=== PATIENT | female | born 1965 | race Caucasian/White ===

== ENCOUNTER 2017-03-17 12:16 | Observation (INO) | payer OTHER ==
[~2017-03-17] VITALS: Ht 172.7 cm; Wt 108.6 kg
[~2017-03-17 12:16] MED LIST: Diltiazem Hcl PO; PANT40TA3 PO
[2017-03-17] MEDS ORDERED: IV NORMAL SALINE 1,000ML 1,000 ML IV SCH (12:26)
[2017-03-17] MEDS ORDERED: 0.9 % SODIUM CHLORIDE 10 ML DISP.SYRIN. IV PRN (12:30)
--- NOTE | 2017-03-17 12:32 | PHYS DOC ---
Past History Past Medical History: Other Additional Past Medical Histor: lupus Past Surgical History: Appendectomy, Cholecystectomy Smoking: Non-smoker Alcohol Use: None Drug Use: None Adult General Chief Complaint Chief Complaint: CHEST PAIN HPI HPI Is a pleasant 51-year-old female with a history of lupus who presents with chest pain that began while exerting herself mowing the lawn today. She's never had chest pain like this before. Began while mowing her second-best lawn today sitting in the center of her chest with radiation to the left shoulder and left side of her neck. She describes a sharp pressure that is unrelenting and not relieved with rest or aspirin at this time. Patient's had some nausea without vomiting no cough but she is mildly short of breath with symptoms. She did not become diaphoretic or have a fever or chills change in vision, change in sensation, or abdominal pain. Patient denies any direct trauma. Patient does have a family history of significant heart disease on her father's side. Patient is a lupus patient has been on prednisone until approximately 2 months ago. Review of Systems Review of Systems Constitutional: Denies fever or chills [] Eyes: Denies change in visual acuity, redness, or eye pain [] HENT: Denies nasal congestion or sore throat [] Respiratory: has sob Cardiovascular: No additional information not addressed in HPI [] GI: Denies abdominal pain, has nausea without vomiting or diarrhea : Denies dysuria or hematuria [] Musculoskeletal: Denies back pain or joint pain [] Integument: Denies rash or skin lesions [] Neurologic: Denies headache, focal weakness or sensory changes [] Endocrine: Denies polyuria or polydipsia [] Family History Family History postive for CAD on father side of family Allergies Allergies Allergies Coded Allergies Type Severity Reaction Last Updated Verified codeine Allergy Severe Swelling 05/12/14 Yes morphine Allergy Intermediate Nausea and Vomiting 05/12/14 Yes prochlorperazine Allergy Intermediate 05/12/14 Yes Physical Exam Physical Exam Noted tachycardia at 102 likely secondary to anxiety normotensive otherwise normal vital signs Constitutional: Well developed, well nourished, no acute distress, non-toxic appearance. [] HENT: Normocephalic, atraumatic, bilateral external ears normal, oropharynx moist, no oral exudates, nose normal. [] Eyes: PERRLA, EOMI, conjunctiva normal, no discharge. [] Neck: Normal range of motion, no tenderness, supple, no stridor. [] Cardiovascular:Heart rate regular rhythm, no murmur heart rate on my exam is 94 monitor Lungs & Thorax: Bilateral breath sounds clear to auscultation [] Abdomen: Bowel sounds normal, soft, no tenderness, no masses, no pulsatile masses. [] Skin: Warm, dry, no erythema, no rash. [] Back: No tenderness, no CVA tenderness. [] Extremities: No tenderness, no cyanosis, no clubbing, ROM intact, no edema. [] Neurologic: Alert and oriented X 3, normal motor function, normal sensory function, no focal deficits noted. [] Psychologic: She is anxious Current Patient Data Vital Signs Vital Sign - Last 24 Hours 03/17/17 03/17/17 03/17/17 03/17/17 12:25 12:28 12:40 12:43 Temp 98.0 Pulse 102 84 Resp 16 18 16 B/P (MAP) 180/86 (117) 156/92 (113) Pulse Ox 97 95 O2 Delivery Room Air Room Air 03/17/17 13:14 Pulse 88 Resp 16 B/P (MAP) 155/89 (111) Pulse Ox 95 Lab Results Laboratory Tests Test 03/17/17 12:33 03/17/17 12:52 White Blood Count 7.4 x10^3/uL (4.0-11.0) Red Blood Count 4.76 x10^6/uL (3.50-5.40) Hemoglobin 14.0 g/dL (12.0-15.5) Hematocrit 40.8 % (36.0-47.0) Mean Corpuscular Volume 86 fL (79-100) Mean Corpuscular Hemoglobin 30 pg (25-35) Mean Corpuscular Hemoglobin Concent 34 g/dL (31-37) Red Cell Distribution Width 13.1 % (11.5-14.5) Platelet Count 227 x10^3/uL (140-400) Neutrophils (%) (Auto) 56 % (31-73) Lymphocytes (%) (Auto) 34 % (24-48) Monocytes (%) (Auto) 6 % (0-9) Eosinophils (%) (Auto) 3 % (0-3) Basophils (%) (Auto) 1 % (0-3) Neutrophils # (Auto) 4.2 x10^3uL (1.8-7.7) Lymphocytes # (Auto) 2.5 x10^3/uL (1.0-4.8) Monocytes # (Auto) 0.5 x10^3/uL (0.0-1.1) Eosinophils # (Auto) 0.2 x10^3/uL (0.0-0.7) Basophils # (Auto) 0.1 x10^3/uL (0.0-0.2) D-Dimer (Lesly) 0.32 mg/L (0.00-0.50) Sodium Level 141 mmol/L (136-145) Potassium Level 3.7 mmol/L (3.5-5.1) Chloride Level 104 mmol/L (98-107) Carbon Dioxide Level 27 mmol/L (21-32) Anion Gap 10 (6-14) Blood Urea Nitrogen 12 mg/dL (7-20) Creatinine 0.8 mg/dL (0.6-1.0) Estimated GFR (Cockcroft-Gault) 75.6 BUN/Creatinine Ratio 15 (6-20) Glucose Level 167 mg/dL (70-99) H Calcium Level 9.0 mg/dL (8.5-10.1) Magnesium Level 2.1 mg/dL (1.8-2.4) Total Bilirubin 0.4 mg/dL (0.2-1.0) Aspartate Amino Transferase (AST) 29 U/L (15-37) Alanine Aminotransferase (ALT) 58 U/L (14-59) Alkaline Phosphatase 129 U/L (46-116) H Creatine Kinase 345 U/L (26-192) H Creatine Kinase MB (Mass) 1.6 ng/mL (0.0-3.6) Creatine Kinase MB Relative Index 0.5 % (0-4) Troponin I Quantitative < 0.017 ng/mL (0-0.055) OW-Diy-Z-Type Natriuretic Peptide 40 pg/mL (0-124) Total Protein 7.5 g/dL (6.4-8.2) Albumin 3.5 g/dL (3.4-5.0) Albumin/Globulin Ratio 0.9 (1.0-1.7) L Lipase 159 U/L (73-393) Urine Collection Type Unknown Urine Color Yellow Urine Clarity Hazy Urine pH 7.0 Urine Specific [place] 1.020 Urine Protein Neg (NEG-TRACE) Urine Glucose (UA) Neg mg/dL (NEG) Urine Ketones (Stick) Neg mg/dL (NEG) Urine Blood Trace (NEG) Urine Nitrite Neg (NEG) Urine Bilirubin Neg (NEG) Urine Urobilinogen Dipstick 0.2 mg/dL (0.2 mg/dL) Urine Leukocyte Esterase Trace (NEG) Urine RBC 3-5 /HPF (0-2) Urine WBC 5-10 /HPF (0-4) Urine Squamous Epithelial Cells Few /LPF Urine Bacteria Mod /HPF (0-FEW) Urine Mucus Slight /LPF EKG EKG EKG timed 1229 03/17/[address] Parada heart rate of 99 demonstrates normal sinus rhythm occasional PACs noticed a similar T-wave changes consistent with acute coronary ischemia. Nonspecific T-wave merged in V1 which may be a normal variant. [] Radiology/Procedures Radiology/Procedures Signed PATIENT: AURORA LONGORIA ACCOUNT: [id number] : 1965 LOCATION: ER AGE: 51 SEX: F EXAM STATUS: REG ER ORD. PHYSICIAN: MADELAINE PARADA MD REASON: chest pain PROCEDURE: CHEST PA & LATERAL EXAM: CHEST 2 VIEWS History: Chest pain COMPARISON: 06/12/2015 TECHNIQUE: PA and lateral chest radiographs FINDINGS: The cardiomediastinal silhouette is within normal limits. The lungs are clear bilaterally. The costophrenic sulci are clear and well demarcated bilaterally. IMPRESSION: No radiographic evidence of an acute cardiopulmonary abnormality. DICTATED AND SIGNED BY: JOESPH VERA MD DATE: 03/17/17 1300 CC: MADELAINE PARADA MD; PARKER CAMPOS MD ~ [] Course & Med Decision Making Course & Med Decision Making Pertinent Labs and Imaging studies reviewed. (See chart for details) she presents with chest pain that she has not expressed before and has a lupus patient she is an increased risk for prematurely developing CAD. She has a significant family history in her father's side given the duration of her symptoms only one hour she'll need to be admitted to the hospital for rule out AL protocol. EKG does not demonstrated acute coronary event at this point. I cannot tell her that she not having heart damage at this time. She has been given multiple pain medications to reduce her pain. At this point her risk factors are family history and lupus. She'll be admitted to the hospital under Dr. FRANCE BLANC her PCP and cardiology evaluation. Differential diagnosis includes dissection, pericarditis, pericardial effusion, endocarditis, myocarditis, pneumonia, asthma, COPD, esophagitis, esophageal reflux disease, esophageal spasm, peptic ulcer disease, pleural effusion, acute coronary ischemia, muscular chest wall pain, anxiety, and mediastinitis. Impression chest pain of unclear etiology, tachycardia now resolved, disposition: Admission to the hospital with PCP and cardiology evaluation. [] Dragon Disclaimer Dragon Disclaimer This chart was dictated in whole or in part using Voice Recognition software in a busy, high-work load, and often noisy Emergency Department environment. It may contain unintended and wholly unrecognized errors or omissions. Departure Departure: Referrals: PARKER CAMPOS MD (PCP) MADELAINE PARADA MD March 17, 2017 12:32
[2017-03-17] MEDS: fentaNYL PF 100 MCG/2 ML VIAL IV PRN ×2 (12:40→13:36)
[2017-03-17] MEDS ORDERED: ONDANSETRON PF 4 MG/2 ML VIAL. IV ONE (12:45)
[2017-03-17 12:48] LABS: BASO # 0.1 x10^3/uL (0.0-0.2); BASO % 1 % (0-3); EOS # 0.2 x10^3/uL (0.0-0.7); EOS % 3 % (0-3); HEMATOCRIT 40.8 % (36.0-47.0); LYMPH # 2.5 x10^3/uL (1.0-4.8); LYMPH % 34 % (24-48); MEAN CORPUSCULAR HEMOGLOBIN 30 pg (25-35); MEAN CORPUSCULAR HGB CONC 34 g/dL (31-37); MEAN CORPUSCULAR VOLUME 86 fL (79-100); MONO # 0.5 x10^3/uL (0.0-1.1); MONO % 6 % (0-9); NEUT # 4.2 x10^3uL (1.8-7.7); NEUT % 56 % (31-73); PLATELET COUNT 227 x10^3/uL (140-400); RED BLOOD COUNT 4.76 x10^6/uL (3.50-5.40); RED CELL DISTRIBUTION WIDTH 13.1 % (11.5-14.5); WHITE BLOOD COUNT 7.4 x10^3/uL (4.0-11.0)
--- NOTE | 2017-03-17 13:03 | RAD ---
EXAM: CHEST 2 VIEWS History: Chest pain COMPARISON: 06/12/2015 TECHNIQUE: PA and lateral chest radiographs FINDINGS: The cardiomediastinal silhouette is within normal limits. The lungs are clear bilaterally. The costophrenic sulci are clear and well demarcated bilaterally. IMPRESSION: No radiographic evidence of an acute cardiopulmonary abnormality.
[2017-03-17 13:12] LABS: ALBUMIN 3.5 g/dL (3.4-5.0); ALBUMIN/GLOBULIN RATIO 0.9 (1.0-1.7); CREATININE 0.8 mg/dL (0.6-1.0); GFR 75.6; MAGNESIUM 2.1 mg/dL (1.8-2.4); POTASSIUM 3.7 mmol/L (3.5-5.1); TOTAL BILIRUBIN 0.4 mg/dL (0.2-1.0); TOTAL PROTEIN 7.5 g/dL (6.4-8.2)
[2017-03-17 13:17] LABS: BILIRUBIN,URINE NEG (NEG); CLARITY,URINE HAZY; COLOR,URINE YELLOW; GLUCOSE,URINE NEG (NEG)
[2017-03-17 13:18] LABS: BACTERIA,URINE MOD /HPF (0-FEW); NITRITE,URINE NEG (NEG); SQUAMOUS EPITHELIAL CELL,UR FEW /LPF; UROBILINOGEN,URINE 0.2 mg/dL (0.2 mg/dL)
[2017-03-17] MEDS ORDERED: ACETAMINOPHEN 325 MG TABLET PO PRN (13:45)
[2017-03-17] MEDS ORDERED: NITROGLYCERIN SUBLINGUAL 0.4 MG BOTTLE OF 25. SL PRN (13:45)
[2017-03-17] MEDS ORDERED: fentaNYL PF 100 MCG/2 ML VIAL IV PRN (13:45)
[2017-03-17] MEDS ORDERED: ONDANSETRON PF 4 MG/2 ML VIAL. IV PRN (13:45)
[2017-03-17 14:39] VITALS: BP 151/88
[2017-03-17 14:47] VITALS: BP 151/88
--- NOTE | 2017-03-17 14:52 | EKG ---
[address] [address] Test Date: 2017-03-17 Test Time: 12:29:02 Pat Name: AURORA LONGORIA Department: Room: 120 A Gender: F Fruit Tester: : 1965 Requested By: MADELAINE PARADA Order Number: [id number] Reading MD: Giancarlo Paez Measurements Intervals [place] Rate: 99 P: 42 MO: 142 QRS: 21 QRSD: 96 T: 28 QT: 344 QTc: 447 Interpretive Statements SINUS RHYTHM ATRIAL PREMATURE COMPLEX(ES) Electronically Signed On 03-18-2017 10:46:49 CDT by Giancarlo Paez
--- NOTE | 2017-03-17 17:01 | CARD ---
APPROVED REPORT EXAM: Two-dimensional and M-mode echocardiogram with Doppler and color Doppler. Other Information Quality : Average Rhythm : NSR INDICATION Chest Pain 2D DIMENSIONS RVDd2.3 (2.9-3.5cm)Left Atrium(2D)4.0 (1.6-4.0cm) IVSd1.1 (0.7-1.1cm)Aortic Root(2D)2.5 (2.0-3.7cm) LVDd4.5 (3.9-5.9cm)LVOT Diameter2.0 (1.8-2.4cm) PWd1.1 (0.7-1.1cm)LVDs3.1 (2.5-4.0cm) FS (%) 29.7 %SV51.4 ml LVEF(%)56.9 (>50%) Aortic Valve AoV Peak Reymundo.141.3cm/sAoV VTI29.6cm AO Peak GR.8.0mmHgLVOT Peak Reymundo.97.8cm/s LVOT VTI 19.24cmAO Mean GR.5mmHg MICHAEL (VMAX)2.22qd9LLJ (VTI)2.02cm2 Mitral Valve MV E Mpxupehd69.2cm/sMV DECEL [id number] MV A Xmwvmock55.0cm/sMV HHO99rl E/A Ratio1.1MV A Vtqhlhpq99fr MVA (PHT)3.50cm2 Tricuspid Valve TR P. Gpdsbvpc655wl/sRAP EOMLWAAU3odZe TR Peak Gr.77hiKhMZTJ05tmIn LEFT VENTRICLE The left ventricle is normal size. There is normal left ventricular wall thickness. Left ventricle sy stolic function is normal. The Ejection Fraction is 55-60%. There is normal LV segmental wall motion. The left ventricular diastolic function and filling is normal for age. There is no ventricular septa l defect visualized. RIGHT VENTRICLE The right ventricle is normal size. The right ventricular systolic function is normal. ATRIA The left atrium size is normal. The right atrium size is normal. The interatrial septum is intact wit h no evidence for an atrial septal defect or patent foramen ovale as noted on 2-D or Doppler imaging. AORTIC VALVE The aortic valve is normal in structure and function. The aortic valve is trileaflet. Doppler and Col or Flow revealed no significant aortic regurgitation. There is no significant aortic valvular stenosi s. MITRAL VALVE The mitral valve is normal in structure and function. There is no mitral valve stenosis. Doppler and Color Flow revealed no mitral valve regurgitation noted. TRICUSPID VALVE The tricuspid valve is normal in structure and function. Doppler and Color Flow revealed trace tricus pid regurgitation. The PA pressure was estimated at 20 mmHg. There is no tricuspid valve stenosis. PULMONIC VALVE The pulmonic valve is not well visualized. Doppler and Color Flow revealed no pulmonic valvular regur gitation. There is no pulmonic valvular stenosis. GREAT VESSELS The aortic root is normal in size. The IVC is normal in size and collapses >50% with inspiration. PERICARDIAL EFFUSION There is no evidence of significant pericardial effusion. Critical Notification Critical Value: No <Conclusion> Left ventricle systolic function is normal. The Ejection Fraction is 55-60%. There is normal LV segmental wall motion.
[2017-03-17 18:42] VITALS: BP 157/83
[2017-03-17 23:19] VITALS: BP 116/69
[2017-03-18 06:11] VITALS: BP 118/77
[2017-03-18 06:35] LABS: BASO % 1 % (0-3); EOS # 0.2 x10^3/uL (0.0-0.7); EOS % 3 % (0-3); HEMATOCRIT 38.9 % (36.0-47.0); HEMOGLOBIN 13.2 g/dL (12.0-15.5); LYMPH # 2.4 x10^3/uL (1.0-4.8); LYMPH % 32 % (24-48); MEAN CORPUSCULAR HEMOGLOBIN 29 pg (25-35); MEAN CORPUSCULAR HGB CONC 34 g/dL (31-37); MEAN CORPUSCULAR VOLUME 86 fL (79-100); MONO # 0.4 x10^3/uL (0.0-1.1); MONO % 5 % (0-9); NEUT # 4.5 x10^3uL (1.8-7.7); NEUT % 60 % (31-73); PLATELET COUNT 217 x10^3/uL (140-400); RED BLOOD COUNT 4.52 x10^6/uL (3.50-5.40); RED CELL DISTRIBUTION WIDTH 13.2 % (11.5-14.5); WHITE BLOOD COUNT 7.6 x10^3/uL (4.0-11.0)
[2017-03-18 06:50] LABS: ALBUMIN 3.2 g/dL (3.4-5.0); ALBUMIN/GLOBULIN RATIO 0.9 (1.0-1.7); CALCIUM 8.9 mg/dL (8.5-10.1); CREATININE 0.8 mg/dL (0.6-1.0); GFR 75.6; TOTAL BILIRUBIN 0.4 mg/dL (0.2-1.0); TOTAL PROTEIN 6.9 g/dL (6.4-8.2)
--- NOTE | 2017-03-18 06:53 | ACF ---
Admission Criteria Forms CARDIOLOGY [facility] Clinical Indications for Admission to Inpatient Care ( Place 'X' for any and all applicable criteria): Hospital admission is needed for appropriate care of the patient because of ANY ONE of the following (1): [ ] I. Hemodynamic instability as indicated by ALL of the following (1)(2)(3) (4)(5) [ ]a) Vital signs or other findings not as expected for chronic patient condition or baseline [ ]b) Instability indicated by ANY ONE of the following: [ ]i) Hypotension [ ]ii) Symptomatic Tachycardia unresponsive to treatment ( e.g., analgesia, fluids, sedation as indicated) [ ]iii) Inadequate perfusion indicated by ANY ONE of the following: [ ] 1) Lactic acidosis (> 2 mmol/L) [ ] 2) New abnormal capillary refill (> 3 seconds) [ ] 3) Reduced urine output [ ] 4) New altered mental status [ ]iv) Orthostatic vital sign changes unresponsive to treatment (e.g., fluids) [ ]v) IV inotropic or vasopressor medication required to maintain adequate blood pressure or perfusion [ ] II. Severe heart failure as indicated by ANY ONE of the following(17)(18) [ ]a) Respiratory distress [ ]b) Hypotension [ ]c) Anasarca (refractory to outpatient therapy) [ ]d) Cardiac arrhythmias of immediate concern [ ]e) Myocardial ischemia [ ] III. Cardiac arrhythmias or findings of immediate concern indicated by ANY ONE of the following (19)(20): [ ] a) Heart rhythms that are inherently dangerous or unstable indicated by ANY ONE of the following (21)(22)(23): [ ] i) Resuscitated ventricular fibrillation or cardiac arrest [ ] ii) Ventricular escape rhythm [ ] iii) Sustained ventricular tachycardia (30 seconds or more of ventricular rhythm at greater than 100 beats per minute) [ ] iv) Nonsustained ventricular tachycardia and ANY ONE of the following: [ ] 1) Suspected cardiac ischemia as cause or consequence of ventricular tachycardia [ ] 2) In setting of acute myocarditis [ ] b) Unstable cardiac conduction defects indicated by ANY ONE of the following(23)(24)(25) [ ] i) Type II second-degree atrioventricular block [ ]ii) Third-degree atrioventricular block [ ]iii) New-onset left bundle branch block with suspected myocardial ischemia [ ]c) Any heart rhythm and ANY ONE of the following (21)(22)(26)(27) (28) [ ] i) Continuous long-term ECG monitoring needed (e.g., initiation of drug requiring monitoring for more than 24 hours) [ ] ii) Patient has automatic implanted cardioverter defibrillator that is repeatedly firing, malfunctioning, or in need of immediate adjustment of settings beyond the scope of ambulatory or observation care [ ]d) Heart rhythms of concern due to ANY ONE of the following: [ ] i) Hypotension [ ] ii) Respiratory distress [ ] iii) Association with other significant symptoms (e.g., bradycardia with syncope or ongoing dizziness, supraventricular tachycardia with chest pain (14)(15)(17) [ ] IV. Monitoring for cardiac contusion beyond the scope of observation care needed [A](30)(31)(32) [ ] V. Surgical or device complication (e.g., valve replacement complication , pacemaker dysfunction) (35)(41)(44)(45)(46) [ ] . Inpatient palliative care needed. [B](49) Also use Inpatient Palliative Care Criteria [ ] VII. Nonbacterial thrombotic (marantic) endocarditis (36)(43)(47)(48) [ ] VIII. Cardiology condition, symptom, or finding for which emergency and observation care has failed or are not considered appropriate. [ ] IX. Acute valvular disease requiring inpatient as indicated by ANY ONE of the following (41) [ ]a) Acute valvular regurgitation (42) [ ]b) Noninfectious valvulitis (43) [ ]c) Obstructive valve thrombosis [ ]d) Paravalvular leak [ ]e) Other significant valvular disorder remaining after emergency or observation level of care (as appropriate) [ ]X. Pericardial disease requiring inpatient treatment as indicated by ANY ONE of the following (33)(34)(35)(36)(37) [ ]a) Suspected tamponade (38)(39)(40) [ ]b) Hemopericardium [ ]c) Other significant pericardial disorder remaining after emergency or observation level of care (as appropriate) [ ] XI. Cardiac ischemia beyond scope of emergency and observation care. [ ] XII. Hypertension requiring inpatient treatment as indicated by ANY ONE of the following (6)(7)(8) [ ]a) SBP greater than 220 mm Hg or DBP greater than 120 mmHg despite treatment [ ]b) SBP greater than 140 mm Hg or DBP greater than 100 mm Hg with evidence of acute end organ damage as indicated by ANY ONE of the following [ ] i) Encephalopathy [ ] ii) Acute renal failure as indicated by new onset of ANY ONE of the following (9)(10)(11)(12)(13) [ ]1) 3-fold rise in serum creatinine from baseline [ ]2) Serum creatinine greater than 4 mg/dL ( 354 micromoles/L) with acute rise greater than 0.5 mg/dL (44.2 micromoles/L) [ ]3) Reduction of more than 75% in estimated glomerular filtration rate from baseline [ ]4) Estimated glomerular filtration rate less than 35 mL/min/1.73m2 (0.59 mL/sec/1.73m2) in child up to 18 years of age [ ]5) Cessation of urine output indicated by ALL of the following [ ]A. Adequate volume status [ ]B. Inadequate urine output as indicated by ANY ONE of the following [ ]a. Urine output less than 0.3 mL/kg/hr for 24 hours [ ]b. Anuria (urine output less than 0.1 mL/kg/hr) for 12 hours [ ] iii) Aortic dissection [ ] iv) Myocardial Ischemia [ ] v) Left ventricular heart failure [ ]vi) Retinal Hemorrhage [ ]vii) Other significant finding [ ]c) Hypertension in child requiring inpatient treatment as indicated by ALL of the following(14)(15)(16) [ ] i) Outpatient treatment not effective, not available, or not appropriate [ ]ii) SBP or DBP greater than 95th percentile for age [ ]iii) Evidence of acute end organ damage as indicated by ANY ONE of the following [ ]1) Altered mental status [ ]2) Acute renal failure as indicated by new onset of ANY ONE of the following(9)(10)(11)(12)(13) [ ]A. 3-fold rise in serum creatinine from baseline [ ]B. Serum creatinine greater than 4 mg/dL (354 micromoles/L) with acute rise greater than 0.5 mg/dL (44.2 micromoles/L) [ ]C. Reduction of more than 75% in estimated glomerular filtration rate from baseline [ ]D. Estimated glomerular filtration rate less than 35 mL/min/1.73m2 (0.59 mL/sec/1.73m2) in child up to 18 years of age [ ]E. Cessation of urine output indicated by ALL of the following [ ]a. Adequate volume status [ ]b. Inadequate urine output as indicated by ANY ONE of the following [ ]i) Urine output less than 0.3 mL/kg/hr for 24 hours [ ]ii) Anuria ( urine output less than 0.1 mL/kg/hr) for 12 hours [ ]3) Severe headache [ ]4) Visual disturbance [ ]5) Retinal hemorrhage [ ]6) Other significant finding [ ]XIII. Complications of transplanted heart indicated by ANY ONE of the following(61): [ ]a) Acute graft rejection requiring inpatient management (eg, intravenous immunosuppression)(62)(63) [ ]b) Acute graft heart failure indicated by ANY ONE of the following(64): [ ]i) Hemodynamic instability [ ]ii) Cardiac arrhythmias of immediate concern [ ]iii) Pulmonary edema that is very severe (eg, mechanical ventilation needed, imminent or likely, need for 100% oxygen to keep oxygen saturation above 90%) [ ]iv) Pulmonary edema that is persistent as indicated by ALL of the following: [ ]1) New need for oxygen therapy to keep oxygen saturation above 90% (or increased FiO2 need from baseline) [ ]2) Has not improved sufficiently with emergency department or observation care IV diuretics or other heart failure treatments[E] [ ]v) Altered mental status that is severe or persistent [ ]vi) Increased creatinine (new on laboratory test) with reduction of more than 50% in estimated glomerular filtration rate from baseline [ ]vii) Progressively (ongoing) rising creatinine (known from past laboratory test) with reduction of more than 25% in estimated glomerular filtration rate from baseline [ ]viii) Acute renal failure [ ]ix) Acute peripheral ischemia (eg, examination shows pulseless, cool, mottled, or cyanotic extremity) [ ]x) Pulmonary artery catheter monitoring needed [ ]xi) Other sign or symptom of heart failure requiring inpatient treatment (ie, too severe or not responsive to outpatient and observation care treatment) [ ]c) Infection requiring inpatient management (eg, Hemodynamic instability, need for intravenous antimicrobial treatment)(66)(67)(68)(69)(70) [ ]d) Cardiac allograft vasculopathy requiring inpatient management ( eg evidence of cardiac ischemia)(71) [ ]e) Other complication of transplanted heart (eg, stroke, severe pulmonary hypertension, severe valvular dysfunction) requiring inpatient management(72) The original [facility] [employer] content created by [facility] has been revised. The portions of the content which have been revised are identified through the use of italic text or in bold, and [facility] has neither reviewed nor approved the modified material. All other unmodified content is copyright [facility] [employer] [employer]. Please see references footnoted in the original [facility] [employer] edition 2016 SANDRA ZHOU. March 18, 2017 06:53
--- NOTE | 2017-03-18 09:49 | PDOC2 ---
CONSULT Date of Admission DATE: 03/18/17 TIME: 09:48 Reason for Consult: cp Problem List Problems Medical Problems: (1) Chest pain Status: Acute Current Medications Current Medications Fentanyl Citrate (Fentanyl 2ml Vial) 50 mcg PRN Q15MIN PRN IV PAIN GREATER THAN 3/10 Last administered on 03/17/17 13:36; Start 03/17/17 at 12:30; Stop at 12:29 Sodium Chloride 1,000 ml @ 1,000 mls/hr Q1H IV Last administered on 03/17/17 12:26; Start 03/17/17 at 12:26; Stop 03/17/17 at 13:25; Status DC Sodium Chloride (Normal Saline Flush) 10 ml QSHIFT PRN IV AFTER MEDS AND BLOOD DRAWS; Start 03/17/17 at 12:30 Ondansetron HCl (Zofran) 4 mg 1X ONCE IV Last administered on 03/17/17 12:38 ; Start 03/17/17 at 12:45; Stop 03/17/17 at 12:46; Status DC Ondansetron HCl (Zofran) 4 mg PRN Q4HRS PRN IV NAUSEA/VOMITING; Start 03/17/17 at 13:45; Stop 03/18/17 at 13:44 Fentanyl Citrate (Fentanyl 2ml Vial) 50 mcg PRN Q1HR PRN IV PAIN; Start at 13:45; Stop 03/18/17 at 13:44 Acetaminophen (Tylenol) 650 mg PRN Q4HRS PRN PO FEVER; Start 03/17/17 at 13:45 ; Stop 03/18/17 at 13:44 Nitroglycerin (Nitrostat) 0.4 mg PRN Q5MIN PRN SL CHEST PAIN; Start 03/17/17 at 13:45; Stop 03/18/17 at 13:44 Active Scripts Active Reported No Known Medications Prior To Admisstion (Info) Each 1 Each Allergies: Coded Allergies: codeine (Verified Allergy, Severe, Swelling, 05/12/14) morphine (Verified Allergy, Intermediate, Nausea and Vomiting, 05/12/14) prochlorperazine (Verified Allergy, Intermediate, 05/12/14) Makes her combativie VITALS Vital Signs Date Time Temp Pulse Resp B/P (MAP) Pulse Ox O2 Delivery O2 Flow Rate FiO2 5/16/17 08:00 Room Air 03/18/17 06:11 97.9 76 18 118/77 (91) 93 Labs Laboratory Tests Test 03/17/17 12:33 03/17/17 12:52 03/17/17 19:05 03/18/17 06:04 White Blood Count 7.4 x10^3/uL (4.0-11.0) 7.6 x10^3/uL (4.0-11.0) Red Blood Count 4.76 x10^6/uL (3.50-5.40) 4.52 x10^6/uL (3.50-5.40) Hemoglobin 14.0 g/dL (12.0-15.5) 13.2 g/dL (12.0-15.5) Hematocrit 40.8 % (36.0-47.0) 38.9 % (36.0-47.0) Mean Corpuscular Volume 86 fL (79-100) 86 fL (79-100) Mean Corpuscular Hemoglobin 30 pg (25-35) 29 pg (25-35) Mean Corpuscular Hemoglobin Concent 34 g/dL (31-37) 34 g/dL (31-37) Red Cell Distribution Width 13.1 % (11.5-14.5) 13.2 % (11.5-14.5) Platelet Count 227 x10^3/uL (140-400) 217 x10^3/uL (140-400) Neutrophils (%) (Auto) 56 % (31-73) 60 % (31-73) Lymphocytes (%) (Auto) 34 % (24-48) 32 % (24-48) Monocytes (%) (Auto) 6 % (0-9) 5 % (0-9) Eosinophils (%) (Auto) 3 % (0-3) 3 % (0-3) Basophils (%) (Auto) 1 % (0-3) 1 % (0-3) Neutrophils # (Auto) 4.2 x10^3uL (1.8-7.7) 4.5 x10^3uL (1.8-7.7) Lymphocytes # (Auto) 2.5 x10^3/uL (1.0-4.8) 2.4 x10^3/uL (1.0-4.8) Monocytes # (Auto) 0.5 x10^3/uL (0.0-1.1) 0.4 x10^3/uL (0.0-1.1) Eosinophils # (Auto) 0.2 x10^3/uL (0.0-0.7) 0.2 x10^3/uL (0.0-0.7) Basophils # (Auto) 0.1 x10^3/uL (0.0-0.2) 0.0 x10^3/uL (0.0-0.2) D-Dimer (Lesly) 0.32 mg/L (0.00-0.50) Sodium Level 141 mmol/L (136-145) 141 mmol/L (136-145) Potassium Level 3.7 mmol/L (3.5-5.1) 4.0 mmol/L (3.5-5.1) Chloride Level 104 mmol/L (98-107) 105 mmol/L (98-107) Carbon Dioxide Level 27 mmol/L (21-32) 29 mmol/L (21-32) Anion Gap 10 (6-14) 7 (6-14) Blood Urea Nitrogen 12 mg/dL (7-20) 9 mg/dL (7-20) Creatinine 0.8 mg/dL (0.6-1.0) 0.8 mg/dL (0.6-1.0) Estimated GFR (Cockcroft-Gault) 75.6 75.6 BUN/Creatinine Ratio 15 (6-20) 11 (6-20) Glucose Level 167 mg/dL (70-99) 123 mg/dL (70-99) Calcium Level 9.0 mg/dL (8.5-10.1) 8.9 mg/dL (8.5-10.1) Magnesium Level 2.1 mg/dL (1.8-2.4) Total Bilirubin 0.4 mg/dL (0.2-1.0) 0.4 mg/dL (0.2-1.0) Aspartate Amino Transf (AST/SGOT) 29 U/L (15-37) 28 U/L (15-37) Alanine Aminotransferase (ALT/SGPT) 58 U/L (14-59) 50 U/L (14-59) Alkaline Phosphatase 129 U/L (46-116) 117 U/L (46-116) Creatine Kinase 345 U/L (26-192) Creatine Kinase MB (Mass) 1.6 ng/mL (0.0-3.6) Creatine Kinase MB Relative Index 0.5 % (0-4) Troponin I Quantitative < 0.017 ng/mL (0-0.055) < 0.017 ng/mL (0-0.055) < 0.017 ng/mL (0-0.055) UK-Ofe-R-Type Natriuretic Peptide 40 pg/mL (0-124) Total Protein 7.5 g/dL (6.4-8.2) 6.9 g/dL (6.4-8.2) Albumin 3.5 g/dL (3.4-5.0) 3.2 g/dL (3.4-5.0) Albumin/Globulin Ratio 0.9 (1.0-1.7) 0.9 (1.0-1.7) Lipase 159 U/L (73-393) Urine Collection Type Unknown Urine Color Yellow Urine Clarity Hazy Urine pH 7.0 Urine Specific [place] 1.020 Urine Protein Neg (NEG-TRACE) Urine Glucose (UA) Neg mg/dL (NEG) Urine Ketones (Stick) Neg mg/dL (NEG) Urine Blood Trace (NEG) Urine Nitrite Neg (NEG) Urine Bilirubin Neg (NEG) Urine Urobilinogen Dipstick 0.2 mg/dL (0.2 mg/dL) Urine Leukocyte Esterase Trace (NEG) Urine RBC 3-5 /HPF (0-2) Urine WBC 5-10 /HPF (0-4) Urine Squamous Epithelial Cells Few /LPF Urine Bacteria Mod /HPF (0-FEW) Urine Mucus Slight /LPF Images EKG - sinus rhythm with early transition, PVCs, non specific abnormalities CXR - NAD Assessment/Plan duplicate Problems: JOSE R GOODMAN APRN March 18, 2017 09:49
[2017-03-18 10:35] VITALS: BP 138/85
--- NOTE | 2017-03-18 11:06 | PDOC2 ---
CONSULT Date of Admission DATE: 03/18/17 TIME: 11:01 Reason for Consult: cp Problem List Problems Medical Problems: (1) Chest pain Status: Acute History of Present Illness Ms Clayton is a 51 year old female with history of Lupus who presents with chest pain. Pain onset occurred while mowing grass with push mower. She describes left sided dull pain with radiation to her left neck and jaw. she reports associated dyspnea, diaphoresis and lightheadedness. She rested without improvement and decided to present to the ED for evaluation. She denies any increase with further exertion, or position changes. There was some improvement with deep inspiration. She reports constant pain for about 6 hours. she denies prior episodes. She denies congestive symptoms, or syncope. She did have a feeling of her heart pounding with the pain. She denies problems with functional capacity. Past Medical History lupus Past Surgical History: Appendectomy, Cholecystectomy Family History coronary artery disease, WPW Social History non smoker, no significant ETOH, no illicit drugs Current Medications Current Medications Fentanyl Citrate (Fentanyl 2ml Vial) 50 mcg PRN Q15MIN PRN IV PAIN GREATER THAN 3/10 Last administered on 03/17/17 13:36; Start 03/17/17 at 12:30; Stop at 12:29 Sodium Chloride 1,000 ml @ 1,000 mls/hr Q1H IV Last administered on 03/17/17 12:26; Start 03/17/17 at 12:26; Stop 03/17/17 at 13:25; Status DC Sodium Chloride (Normal Saline Flush) 10 ml QSHIFT PRN IV AFTER MEDS AND BLOOD DRAWS; Start 03/17/17 at 12:30 Ondansetron HCl (Zofran) 4 mg 1X ONCE IV Last administered on 03/17/17 12:38 ; Start 03/17/17 at 12:45; Stop 03/17/17 at 12:46; Status DC Ondansetron HCl (Zofran) 4 mg PRN Q4HRS PRN IV NAUSEA/VOMITING; Start 03/17/17 at 13:45; Stop 03/18/17 at 13:44 Fentanyl Citrate (Fentanyl 2ml Vial) 50 mcg PRN Q1HR PRN IV PAIN; Start at 13:45; Stop 03/18/17 at 13:44 Acetaminophen (Tylenol) 650 mg PRN Q4HRS PRN PO FEVER; Start 03/17/17 at 13:45 ; Stop 03/18/17 at 13:44 Nitroglycerin (Nitrostat) 0.4 mg PRN Q5MIN PRN SL CHEST PAIN; Start 03/17/17 at 13:45; Stop 03/18/17 at 13:44 Active Scripts Active Reported No Known Medications Prior To Admisstion (Info) Each 1 Each Allergies: Coded Allergies: codeine (Verified Allergy, Severe, Swelling, 05/12/14) morphine (Verified Allergy, Intermediate, Nausea and Vomiting, 05/12/14) prochlorperazine (Verified Allergy, Intermediate, 05/12/14) Makes her combativie Review of System as per HPI General: Alert, Oriented X3, Cooperative, No acute distress HEENT: Atraumatic, EOMI, Mucous membr. moist/pink Lungs: Clear to auscultation, Normal air movement Heart: Regular rate, Normal S1, Normal S2, No murmurs, Other (no gallops, clicks or rubs) Abdomen: Normal bowel sounds, Soft, No tenderness Extremities: No clubbing, No cyanosis, Normal pulses Neuro: Normal speech, Strength at 03/07 X4 ext Psych/Mental Status: Mental status NL, Mood NL VITALS Vital Signs Date Time Temp Pulse Resp B/P (MAP) Pulse Ox O2 Delivery O2 Flow Rate FiO2 03/18/17 10:35 98.1 85 18 138/85 (102) 94 Room Air Labs Laboratory Tests Test 03/17/17 12:33 03/17/17 12:52 03/17/17 19:05 03/18/17 06:04 White Blood Count 7.4 x10^3/uL (4.0-11.0) 7.6 x10^3/uL (4.0-11.0) Red Blood Count 4.76 x10^6/uL (3.50-5.40) 4.52 x10^6/uL (3.50-5.40) Hemoglobin 14.0 g/dL (12.0-15.5) 13.2 g/dL (12.0-15.5) Hematocrit 40.8 % (36.0-47.0) 38.9 % (36.0-47.0) Mean Corpuscular Volume 86 fL (79-100) 86 fL (79-100) Mean Corpuscular Hemoglobin 30 pg (25-35) 29 pg (25-35) Mean Corpuscular Hemoglobin Concent 34 g/dL (31-37) 34 g/dL (31-37) Red Cell Distribution Width 13.1 % (11.5-14.5) 13.2 % (11.5-14.5) Platelet Count 227 x10^3/uL (140-400) 217 x10^3/uL (140-400) Neutrophils (%) (Auto) 56 % (31-73) 60 % (31-73) Lymphocytes (%) (Auto) 34 % (24-48) 32 % (24-48) Monocytes (%) (Auto) 6 % (0-9) 5 % (0-9) Eosinophils (%) (Auto) 3 % (0-3) 3 % (0-3) Basophils (%) (Auto) 1 % (0-3) 1 % (0-3) Neutrophils # (Auto) 4.2 x10^3uL (1.8-7.7) 4.5 x10^3uL (1.8-7.7) Lymphocytes # (Auto) 2.5 x10^3/uL (1.0-4.8) 2.4 x10^3/uL (1.0-4.8) Monocytes # (Auto) 0.5 x10^3/uL (0.0-1.1) 0.4 x10^3/uL (0.0-1.1) Eosinophils # (Auto) 0.2 x10^3/uL (0.0-0.7) 0.2 x10^3/uL (0.0-0.7) Basophils # (Auto) 0.1 x10^3/uL (0.0-0.2) 0.0 x10^3/uL (0.0-0.2) D-Dimer (Lesly) 0.32 mg/L (0.00-0.50) Sodium Level 141 mmol/L (136-145) 141 mmol/L (136-145) Potassium Level 3.7 mmol/L (3.5-5.1) 4.0 mmol/L (3.5-5.1) Chloride Level 104 mmol/L (98-107) 105 mmol/L (98-107) Carbon Dioxide Level 27 mmol/L (21-32) 29 mmol/L (21-32) Anion Gap 10 (6-14) 7 (6-14) Blood Urea Nitrogen 12 mg/dL (7-20) 9 mg/dL (7-20) Creatinine 0.8 mg/dL (0.6-1.0) 0.8 mg/dL (0.6-1.0) Estimated GFR (Cockcroft-Gault) 75.6 75.6 BUN/Creatinine Ratio 15 (6-20) 11 (6-20) Glucose Level 167 mg/dL (70-99) 123 mg/dL (70-99) Calcium Level 9.0 mg/dL (8.5-10.1) 8.9 mg/dL (8.5-10.1) Magnesium Level 2.1 mg/dL (1.8-2.4) Total Bilirubin 0.4 mg/dL (0.2-1.0) 0.4 mg/dL (0.2-1.0) Aspartate Amino Transf (AST/SGOT) 29 U/L (15-37) 28 U/L (15-37) Alanine Aminotransferase (ALT/SGPT) 58 U/L (14-59) 50 U/L (14-59) Alkaline Phosphatase 129 U/L (46-116) 117 U/L (46-116) Creatine Kinase 345 U/L (26-192) Creatine Kinase MB (Mass) 1.6 ng/mL (0.0-3.6) Creatine Kinase MB Relative Index 0.5 % (0-4) Troponin I Quantitative < 0.017 ng/mL (0-0.055) < 0.017 ng/mL (0-0.055) < 0.017 ng/mL (0-0.055) IP-Qvl-N-Type Natriuretic Peptide 40 pg/mL (0-124) Total Protein 7.5 g/dL (6.4-8.2) 6.9 g/dL (6.4-8.2) Albumin 3.5 g/dL (3.4-5.0) 3.2 g/dL (3.4-5.0) Albumin/Globulin Ratio 0.9 (1.0-1.7) 0.9 (1.0-1.7) Lipase 159 U/L (73-393) Urine Collection Type Unknown Urine Color Yellow Urine Clarity Hazy Urine pH 7.0 Urine Specific [place] 1.020 Urine Protein Neg (NEG-TRACE) Urine Glucose (UA) Neg mg/dL (NEG) Urine Ketones (Stick) Neg mg/dL (NEG) Urine Blood Trace (NEG) Urine Nitrite Neg (NEG) Urine Bilirubin Neg (NEG) Urine Urobilinogen Dipstick 0.2 mg/dL (0.2 mg/dL) Urine Leukocyte Esterase Trace (NEG) Urine RBC 3-5 /HPF (0-2) Urine WBC 5-10 /HPF (0-4) Urine Squamous Epithelial Cells Few /LPF Urine Bacteria Mod /HPF (0-FEW) Urine Mucus Slight /LPF Images sinus rhythm, PACs, no acute abn CXR - IMPRESSION: No radiographic evidence of an acute cardiopulmonary abnormality. Assessment/Plan 1. exertional chest pain - MN ruled out, CK elevated with normal troponin. Echo reveals normal LV function and wall motion. Check lipids. Consider outpatient MPI. 2. 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
--- NOTE | 2017-03-18 17:53 | DS ---
DATE OF DISCHARGE: 03/18/2017 HOSPITAL COURSE: This is a pleasant 51-year-old female who had chest pain radiating to left side of her neck and down her left arm while mowing grass. The patient made good progress. Her cardiac enzymes were basically normal and she was seen by Dr. Abernathy, the noted storage worker from [place] and did very well. Blood pressure was 138/85, respiratory rate 18, pulse 85 and temperature afebrile. The patient's labs were basically unremarkable. Her CBC was completely normal. Sugars were a little bit on the high side, 167, 123 and hemoglobin A1c was pending. D-dimer was negative. Her creatinine was elevated but it may have been from mowing grass but her troponins were negative. Albumins were within range. Urine did show 5-10 white blood cells. Cultures are pending on that. Chest x-ray was normal. IMPRESSION: Chest pain, family history of heart disease, ____ hyperglycemia. The patient will follow up accordingly with Cardiology, see MRAD and a heart healthy diet. PARKER CAMPOS MD DR: RADHA/leanne JOB#: [id number] / [id number]
== END 2017-03-18 13:12 | disposition home or self-care (01) ==
LOC: ER 12:16 → 1 SOUTH 13:37 → ER 13:37
PROVIDERS: ADMIT Family Medicine; ATTEND Family Medicine
DX: R07.89 Other chest pain (principal); R11.0 Nausea; R06.02 Shortness of breath; R73.9 Hyperglycemia, unspecified; Z90.49 Acquired absence of other specified parts of digestive tract
CPT/HCPCS: 36415; 71020; 80053; 80061; 81001; 82553; 83036; 83690; 83735; 83880; 84443; 84484; 85027; 85379; 87086; 93005; 93306; 96361; 96374; 96375; 96376; 99285; G0378; J2405; J3010; 87186; G0379; J7030

== ENCOUNTER 2018-10-31 00:12 | Emergency (ER) | payer OTHER ==
[~2018-10-31] VITALS: Ht 172.7 cm; Wt 102.1 kg
--- NOTE | 2018-10-31 00:15 | ED.ADGEN ---
Past History Past Medical History: Cancer, Other Additional Past Medical Histor: lupus Past Surgical History: Appendectomy, Cholecystectomy, Other Past Surgical History Adrenal Carcinoma Smoking: Non-smoker Alcohol Use: None Drug Use: None Adult General Chief Complaint Chief Complaint ".. My ankle is hurting...".. " my heel is hurting.. ".. " I was coming out shower.. and slipped and came down hard on this Rt. ankle and heel.. and something gave away .. I have severe pain..." HPI HPI Patient is a 53 year old female who presents with above hx and complaints of severe pain in Rt. ankle, foot and heel after slipping getting out of shower. Pt. unable to ever tolerated any movement of Lt. foot and heel. Pt. has obvious edema. Distal capillary refill equal finger tips. Pt. has mild upper calf tenderness. Some tenderness of the Achilles tendon . No other injury reported. Review of Systems Review of Systems Constitutional: Denies fever or chills [] Eyes: Denies change in visual acuity, redness, or eye pain [] HENT: Denies nasal congestion or sore throat [] Respiratory: Denies cough or shortness of breath [] Cardiovascular: No additional information not addressed in HPI [] GI: Denies abdominal pain, nausea, vomiting, bloody stools or diarrhea [] : Denies dysuria or hematuria [] Musculoskeletal: Denies back pain or joint pain []Complaints of severe heel, ankle and foot pain Rt. Integument: Denies rash or skin lesions [] Neurologic: Denies headache, focal weakness or sensory changes [] Endocrine: Denies polyuria or polydipsia [] All other systems were reviewed and found to be within normal limits, except as documented in this note. Family History Family History Noncontributory Current Medications Current Medications Current Medications Medications (Trade) Dose Ordered Sig/Marina Start Time Stop Time Status Last Admin Dose Admin Fentanyl Citrate (Fentanyl 2ml Vial) 100 mcg 1X ONCE 10/31/18 00:45 10/31/18 01:26 DC 10/31/18 00:52 100 MCG Ketorolac Tromethamine (Toradol Im) 60 mg 1X ONCE 10/31/18 00:45 10/31/18 01:26 DC 10/31/18 00:51 60 MG Allergies Allergies Allergies Coded Allergies Type Severity Reaction Last Updated Verified codeine Allergy Severe Swelling 05/12/14 Yes morphine Allergy Intermediate Nausea and Vomiting 05/12/14 Yes prochlorperazine Allergy Intermediate 05/12/14 Yes Physical Exam Physical Exam Constitutional: in acute distress, non-toxic appearance. [] HENT: Normocephalic, atraumatic, bilateral external ears normal, oropharynx moist, no oral exudates, nose normal. [] Eyes: PERRLA, EOMI, conjunctiva normal, no discharge. [] Neck: Normal range of motion, no tenderness, supple, no stridor. [] Cardiovascular:Tachycardia Heart rate regular rhythm, no murmur [] Lungs & Thorax: Bilateral breath sounds clear to auscultation [] Abdomen: Bowel sounds normal, soft, no tenderness, no masses, no pulsatile masses. []Old surgery scars. Skin: Warm, dry, no erythema, no rash. [] Back: No tenderness, no CVA tenderness. [] Extremities: No tenderness, no cyanosis, no clubbing, ROM intact, no edema. [] Except findings as per HPI Neurologic: Alert and oriented X 3, normal motor function, normal sensory function, no focal deficits noted. [] Psychologic: Affect anxious, judgement normal, mood normal. [] Current Patient Data Vital Signs Vital Signs Date Time Temp Pulse Resp B/P (MAP) Pulse Ox O2 Delivery O2 Flow Rate FiO2 10/31/18 00:52 18 97 Room Air 10/31/18 00:25 97.8 107 EKG EKG [] Radiology/Procedures Radiology/Procedures My interpretation of right foot and ankle x-ray shows edema. No obvious displaced fracture. There does appear to be some flattening of the longitudinal plantar arch.[] CT shows no displaced fracture. No obstructive process appreciated. There is soft tissue swelling in anteromedially area. No large hematoma. Course & Med Decision Making Course & Med Decision Making Pertinent Labs and Imaging studies reviewed. (See chart for details) Ice, elevation, rest, splint, crutches. Follow up with primary and orthro. Tylenol and Ibuprofen for pain. Marked pain may take vicoprofen up 4 x day. Must follow up. Distal neurovascular intact post splint. Recommend bone density study with hx of chemo and radiation for adrenal carcinoma. May need MRI to eval. ankle and orthro. followup. [] Final Impression Final Impression 1. Rt ankle and Foot sprain- tendon tear 2. Heel contusion[] Dragon Disclaimer Dragon Disclaimer This electronic medical record was generated, in whole or in part, using a voice recognition dictation system. CRISTIAN WALLACE MD Oct 31, 2018 00:15
[2018-10-31 00:25] VITALS: BP 138/86
[2018-10-31] MEDS ORDERED: KETOROLAC 60 MG/2 ML VIAL. IM ONE (00:45)
--- NOTE | 2018-10-31 00:59 | RAD ---
Right ankle 3 views 10/31/2018. Reason for exam: Injured while stepping out of bathtub. Pain medially and laterally. No acute fracture or dislocation is seen. There is suggestion of mild soft tissue swelling. There is no joint narrowing or apparent effusion. IMPRESSION: No identified acute bony abnormality. Electronically signed by: Wilton Smith Jr., MD (10/31/2018 12:55 AM) [id number]
--- NOTE | 2018-10-31 01:43 | RAD ---
CT of the right ankle without contrast 10/31/2018. Reason for exam: Pain after injury. Helical noncontrast images were performed. Sagittal and coronal reconstructions were obtained. Exposure: One or more of the following individualized dose reduction techniques were utilized for this examination: 1. Automated exposure control 2. Adjustment of the mA and/or kV according to patient size 3. Use of iterative reconstruction technique. Comparison is made with radiographs done earlier. FINDINGS: There is no apparent fracture. No joint effusion is seen. There is a small accessory ossicle near the peroneal tendons. No unusual arthritic changes are seen and there is no apparent destructive process. There is suggestion of some soft tissue swelling anteromedially. No large hematoma is seen. Evaluation of the ligaments and tendons is relatively limited on CT. IMPRESSION: No apparent fracture or other significant acute abnormality. Electronically signed by: Wilton Smith Jr., MD (10/31/2018 1:39 AM) [id number]
[2018-10-31] MEDS ORDERED: HYDR-1179 PO (02:13)
== END 2018-10-31 02:15 | disposition home or self-care (01) ==
LOC: ER 00:12
DX: S96.921A Laceration of unspecified muscle and tendon at ankle and foot level, right foot, initial encounter (principal); Z88.5 Allergy status to narcotic agent; Z88.8 Allergy status to other drugs, medicaments and biological substances; W18.40XA Slipping, tripping and stumbling without falling, unspecified, initial encounter; Y93.E1 Activity, personal bathing and showering; Y92.89 Other specified places as the place of occurrence of the external cause; Y99.8 Other external cause status
CPT/HCPCS: 29515; 73610; 73700; 96372; 99284; J1885; J3010

== ENCOUNTER 2019-08-12 18:47 | Emergency (ER) | payer OTHER ==
[~2019-08-12 18:47] MED LIST changes: +HYDR-1179 PO
--- NOTE | 2019-08-12 19:29 | PHYS DOC ---
Past History Past Medical History: Cancer, Other Additional Past Medical Histor: lupus Past Surgical History: Appendectomy, Cholecystectomy, Other Smoking: Non-smoker Alcohol Use: None Drug Use: None Adult General Chief Complaint Chief Complaint: UPPER EXTREMITY PAIN HPI HPI Patient is a pleasant 53-year-old female who states that she was running up the stairs just prior to arrival, when she fell after tripping, and landed on her right forearm. She is complaining of pain diffusely along her right mid and distal forearm and her wrist as well. Movement and palpation of the affected area worsen her pain. She denies any numbness, weakness, or other painful areas. Review of Systems Review of Systems Constitutional: Denies fever or chills [] Eyes: Denies change in visual acuity, redness, or eye pain [] HENT: Denies nasal congestion or sore throat [] Respiratory: Denies cough or shortness of breath [] Musculoskeletal: Denies back pain or joint pain [] Integument: Denies rash or skin lesions , lacerations or contusions.[] Neurologic: Denies headache, focal weakness or sensory changes [] Allergies Allergies Allergies Coded Allergies Type Severity Reaction Last Updated Verified codeine Allergy Severe Swelling 05/12/14 Yes morphine Allergy Intermediate Nausea and Vomiting 05/12/14 Yes prochlorperazine Allergy Intermediate 05/12/14 Yes Physical Exam Physical Exam PHYSICAL EXAM: CONSTITUTIONAL: Well developed, well nourished HEAD: normocephalic, atraumatic EENT: PERRL, EOMI. Conjunctivae normal color, sclerae non-icteric; moist mucous membranes. NECK: Supple, non-tender; no meningismus.There is full, painless range of motion of the cervical spine, without any focal bony midline tenderness to palpation. LUNGS: Lungs CTA, breathing even and unlabored. Normal air movement. HEART: Regular rate and rhythm, no murmur CHEST: No deformity; non-tender ABDOMEN: The abdomen is soft, and non-tender, no masses or bruits. EXTREM: There is tenderness to palpation diffusely along the right mid and distal forearm, as well as in the right wrist. There is no definite anatomic snuffbox tenderness to palpation although the radial aspect of the distal wrist is diffusely tender. The hand is nontender, with distal PMS intact in the digits, pronation and supination of the forearm and elbow are normal. Flexion and extension of the elbow is normal. There is no tenderness to palpation to the proximal forearm on the right, elbow, arm, or shoulder. The remainder the extremities are atraumatic, with Normal ROM; no deformity, no calf tenderness. Normal pulses palpable in all extremities. There is no pedal edema. SKIN: No rash; no diaphoresis. The skin is Intact. No bruising noted. NEURO: Alert; normal speech and cognition; CN's grossly intact; strength grossly intact without focal deficit. BACK: No CVA TTP. EKG EKG [] Radiology/Procedures Radiology/Procedures [] Course & Med Decision Making Course & Med Decision Making 9:00 PM: Patient apparently left the emergency department, eloped, prior to completion of care, did not get an x-ray, ER was overcrowded several sick patients at the time. Dragon Disclaimer Dragon Disclaimer This electronic medical record was generated, in whole or in part, using a voice recognition dictation system. Departure Departure: Impression: Primary Impression: Injury of right upper extremity Disposition: 07 AGAINST MEDICAL ADVICE Condition: STABLE Referrals: KATH MELTON MD (PCP) MICHELLE ROSENBERG MD Aug 12, 2019 19:29
[2019-08-12] MEDS ORDERED: ACETAMINOPHEN 500 MG TABLET PO ONE (19:30)
== END 2019-08-12 19:58 | disposition left against medical advice (07) ==
LOC: ER 18:47
DX: S59.911A Unspecified injury of right forearm, initial encounter (principal); S69.91XA Unspecified injury of right wrist, hand and finger(s), initial encounter; Z88.5 Allergy status to narcotic agent; Z88.8 Allergy status to other drugs, medicaments and biological substances; W01.0XXA Fall on same level from slipping, tripping and stumbling without subsequent striking against object, initial encounter; Y93.02 Activity, running; Y92.89 Other specified places as the place of occurrence of the external cause; Y99.8 Other external cause status
CPT/HCPCS: 99281

== ENCOUNTER 2020-02-17 20:45 | Emergency (ER) | payer OTHER ==
[~2020-02-17] VITALS: Ht 172.7 cm; Wt 110.7 kg
[2020-02-17 20:55] VITALS: BP 152/92
[2020-02-17] MEDS ORDERED: PRED20TA PO (21:28)
--- NOTE | 2020-02-17 21:28 | PHYS DOC ---
Past History Past Medical History: Cancer, Other Additional Past Medical Histor: lupus Past Surgical History: Appendectomy, Cholecystectomy Smoking: Non-smoker Alcohol Use: None Drug Use: None General Adult EDM: Chief Complaint: SHOULDER INJURY HPI: HPI: 54-year-old female presents with right posterior shoulder pain. She has been having stiffness for the last couple of days. 3 days ago, she had a severe migraine that lasted all day. Patient denies any trauma, falls, or overuse. She is concerned because she's had tingling in all 5 of her fingers today. The pain is just superior to the spine of the scapula. It is not especially painful palpation. She has not had shoulder or neck problems in the past. No history of surgeries in the neck or shoulder. She does have lupus and is currently well co ntrolled. She is on no medications. She denies fever or chills. Review of Systems: Review of Systems: Constitutional: Denies fever or chills Eyes: Denies change in visual acuity HENT: Denies nasal congestion or sore throat Respiratory: Denies cough or shortness of breath Cardiovascular: Denies chest pain or edema GI: Denies abdominal pain, nausea, vomiting, bloody stools or diarrhea : Denies dysuria Musculoskeletal: Right posterior shoulder pain Integument: Denies rash Neurologic: Denies headache, focal weakness or sensory changes Endocrine: Denies polyuria or polydipsia Lymphatic: Denies swollen glands Psychiatric: Denies depression or anxiety Heart Score: Risk Factors: Risk Factors: DM, Current or recent (<one month) smoker, HTN, HLP, family history of CAD, obesity. Risk Scores: Score 0 - 3: 2.5% MACE over next 6 weeks - Discharge Home Score 4 - 6: 20.3% MACE over next 6 weeks - Admit for Clinical Observation Score 7 - 10: 72.7% MACE over next 6 weeks - Early Invasive Strategies Allergies: Allergies: Allergies Coded Allergies Type Severity Reaction Last Updated Verified codeine Allergy Severe Swelling 05/12/14 Yes morphine Allergy Intermediate Nausea and Vomiting 05/12/14 Yes prochlorperazine Allergy Intermediate 05/12/14 Yes Physical Exam: PE: Constitutional: Well developed, well nourished, no acute distress, non-toxic appearance. [] HENT: Normocephalic, atraumatic, bilateral external ears normal, oropharynx moist, no oral exudates, nose normal. [] Eyes: PERRLA, EOMI, conjunctiva normal, no discharge. [] Neck: Normal range of motion, no tenderness, supple, no stridor. [] Cardiovascular:Heart rate regular rhythm, no murmur [] Lungs & Thorax: Bilateral breath sounds clear to auscultation [] Abdomen: Bowel sounds normal, soft, no tenderness, no masses, no pulsatile masses. [] Skin: Warm, dry, no erythema, no rash. [] Back: Mild tenderness over the spine of the right scapula, no significant muscle spasm. No skin findings.[] Extremities: No tenderness, no cyanosis, no clubbing, ROM intact, no edema. [] Neurologic: Alert and oriented X 3, normal motor function, normal sensory function, no focal deficits noted. [] Psychologic: Affect normal, judgement normal, mood normal. [] Current Patient Data: Vital Signs: Vital Signs Date Time Temp Pulse Resp B/P (MAP) Pulse Ox O2 Delivery O2 Flow Rate FiO2 02/17/20 20:55 97.9 97 20 152/92 (112) 97 Room Air EKG: EKG: [] Radiology/Procedures: Radiology/Procedures: [] Course & Med Decision Making: Course & Med Decision Making Pertinent Labs and Imaging studies reviewed. (See chart for details) The patient's tingling sensation makes me curious for nerve impingement either in the neck or through the brachial plexus. I will try 5 days of 40 mg prednisone. She will follow up with her primary care physician. She is stable for discharge at this time. [] Dragon Disclaimer: Elaine Disclaimer: This electronic medical record was generated, in whole or in part, using a voice recognition dictation system. Departure Departure: Impression: Primary Impression: Cervical radiculopathy, acute Additional Impression: Right shoulder pain Qualified Codes: M25.511 - Pain in right shoulder Disposition: 01 HOME, SELF-CARE Condition: STABLE Referrals: KATH MELTON MD (PCP) Patient Instructions: Cervical Radiculopathy, [id number] Scripts Prednisone (PREDNISONE) 20 Mg Tablet 2 TAB PO DAILY for shoulder pain for 4 Days, #8 TAB Prov: BRYAN ISRAEL DO 02/17/20 BRYAN ISRAEL DO Feb 17, 2020 21:28
[2020-02-17] MEDS: predniSONE 20 MG TABLET PO ONE (21:40)
== END 2020-02-17 21:40 | disposition home or self-care (01) ==
LOC: ER 20:45
DX: M54.12 Radiculopathy, cervical region (principal); M25.511 Pain in right shoulder; G43.909 Migraine, unspecified, not intractable, without status migrainosus; Z88.5 Allergy status to narcotic agent; Z88.8 Allergy status to other drugs, medicaments and biological substances
CPT/HCPCS: 99283; J7512

== ENCOUNTER 2020-06-18 15:41 | Emergency (ER) | payer OTHER ==
[~2020-06-18] VITALS: Ht 172.7 cm; Wt 108.5 kg
[~2020-06-18 15:41] MED LIST changes: +PRED20TA PO
[2020-06-18] MEDS ORDERED: IV NORMAL SALINE 1,000ML 1,000 ML IV SCH (15:54)
--- NOTE | 2020-06-18 15:55 | PHYS DOC ---
Past History Past Medical History: Cancer, Other Additional Past Medical Histor: lupus Past Surgical History: Appendectomy, Cholecystectomy Smoking: Non-smoker Alcohol Use: None Drug Use: None General Adult EDM: Chief Complaint: CHEST PAIN HPI: HPI: Patient is a 54 year old female who presents for evaluation of chest pain chest pressure that started over the past 24 hours. She states it feels like a "squeezing sensation" in her chest. Symptoms occurred at rest. Furthermore she is had some recent palpitations. Patient has had progressing nausea for 2 days. Furthermore she is had dizziness and lightheadedness. Patient does not have a known cardiac history. Patient does have a history of lupus. Patient does not have a known cardiac history Review of Systems: Review of Systems: Constitutional: Denies fever or chills Eyes: Denies change in visual acuity HENT: Denies nasal congestion or sore throat Respiratory: Denies cough has shortness of breath Cardiovascular: has central chest pain but no edema GI: Denies abdominal pain, nausea, vomiting, bloody stools or diarrhea : Denies dysuria Musculoskeletal: Denies back pain or joint pain Integument: Denies rash Neurologic: Denies headache, focal weakness or sensory changes Endocrine: Denies polyuria or polydipsia Lymphatic: Denies swollen glands Psychiatric: Denies depression or anxiety Heart Score: HEART Score for Chest Pain: HEART Score for Chest Pain Response (Comments) Value History Moderately Suspicious 1 ECG Normal 0 Age >45 - < 65 1 Risk Factors No Risk Factors 0 Troponin < Normal Limit 0 Total 2 Risk Factors: Risk Factors: DM, Current or recent (<one month) smoker, HTN, HLP, family history of CAD, obesity. Risk Scores: Score 0 - 3: 2.5% MACE over next 6 weeks - Discharge Home Score 4 - 6: 20.3% MACE over next 6 weeks - Admit for Clinical Observation Score 7 - 10: 72.7% MACE over next 6 weeks - Early Invasive Strategies Allergies: Allergies: Allergies Coded Allergies Type Severity Reaction Last Updated Verified codeine Allergy Severe Swelling 05/12/14 Yes morphine Allergy Intermediate Nausea and Vomiting 05/12/14 Yes prochlorperazine Allergy Intermediate 05/12/14 Yes Physical Exam: PE: Constitutional: Well developed, well nourished, mild to moderate acute distress. [] HENT: Normocephalic, atraumatic, bilateral external ears normal, oropharynx moist, no oral exudates, nose normal. [] Eyes: PERRL, EOMI, conjunctiva normal, no discharge. [] Neck: Normal range of motion, no tenderness, supple, no stridor. [] Cardiovascular:Heart rate regular rhythm, no murmur [] Lungs & Thorax: Bilateral breath sounds clear to auscultation [] Abdomen: Bowel sounds normal, soft, no tenderness, no masses. [] Skin: Warm, dry, no erythema, no rash. [] Back: No tenderness. [] Extremities: No tenderness, no cyanosis, no clubbing, ROM intact, no edema. [] Neurologic: Alert and oriented X 3, normal motor function, normal sensory function, no focal deficits noted. [] Psychologic: Affect normal, judgement normal, mood anxious. [] Current Patient Data: Labs: Laboratory Tests Test 06/18/20 15:50 White Blood Count 9.0 x10^3/uL Red Blood Count 4.84 x10^6/uL Hemoglobin 14.4 g/dL Hematocrit 42.2 % Mean Corpuscular Volume 87 fL Mean Corpuscular Hemoglobin 30 pg Mean Corpuscular Hemoglobin Concent 34 g/dL Red Cell Distribution Width 13.1 % Platelet Count 261 x10^3/uL Neutrophils (%) (Auto) 60 % Lymphocytes (%) (Auto) 30 % Monocytes (%) (Auto) 7 % Eosinophils (%) (Auto) 3 % Basophils (%) (Auto) 1 % Neutrophils # (Auto) 5.4 x10^3uL Lymphocytes # (Auto) 2.7 x10^3/uL Monocytes # (Auto) 0.6 x10^3/uL Eosinophils # (Auto) 0.2 x10^3/uL Basophils # (Auto) 0.1 x10^3/uL Sodium Level 139 mmol/L Potassium Level 3.9 mmol/L Chloride Level 104 mmol/L Carbon Dioxide Level 28 mmol/L Anion Gap 7 Blood Urea Nitrogen 16 mg/dL Creatinine 1.2 mg/dL Estimated GFR (Cockcroft-Gault) 46.8 BUN/Creatinine Ratio 13 Glucose Level 159 mg/dL Calcium Level 9.2 mg/dL Total Bilirubin 0.4 mg/dL Aspartate Amino Transf (AST/SGOT) 39 U/L Alanine Aminotransferase (ALT/SGPT) 66 U/L Alkaline Phosphatase 134 U/L Troponin I Quantitative < 0.017 ng/mL Total Protein 7.6 g/dL Albumin 3.5 g/dL Albumin/Globulin Ratio 0.9 Current Medications Medications (Trade) Dose Ordered Sig/Marina Route PRN Reason Start Time Stop Time Status Last Admin Dose Admin Aspirin (Sharita Aspirin) 325 mg 1X ONCE PO 06/18/20 16:00 06/18/20 16:01 DC 06/18/20 16:05 Sodium Chloride 1,000 ml @ 100 mls/hr Q10H IV 06/18/20 15:54 06/19/20 01:53 06/18/20 16:05 EKG: EKG: Normal sinus rhythm, rate 95, inverted T wave lead III, unremarkable EKG, not STEMI read at 1551 [] Radiology/Procedures: Radiology/Procedures: [address] [address] IMAGING REPORT Signed PATIENT: AURORA LONGORIA ACCOUNT: [id number] : 1965 LOCATION: ER AGE: 54 SEX: F EXAM STATUS: REG ER ORD. PHYSICIAN: LATRICIA PALACIOS DO REASON: chest pain PROCEDURE: PORTABLE CHEST 1V Chest AP portable at 1556: Reason for examination: Chest pain. Comparison is made to previous study dated 03/17/2017. The heart size is normal. Mediastinum is unremarkable. Lung pressley are clear. No acute bony abnormalities are seen. Impression: No acute cardiopulmonary disease. Electronically signed by: Summer Mcbride MD (06/18/2020 4:44 PM) [facility] AND SIGNED BY: SUMMER MCBRIDE MD DATE: 06/18/20 1453 CC: KATH MELTON MD; LATRICIA PALACIOS DO ~ [] Course & Med Decision Making: Course & Med Decision Making Pertinent Labs and Imaging studies reviewed. (See chart for details) [] Dragon Disclaimer: Dragon Disclaimer: This electronic medical record was generated, in whole or in part, using a voice recognition dictation system. [address] Joyner who agreed to accept patient for chest pain observation. Patient still rates her chest pain about 4 out of 10. Opiates were held because patient has significant allergies to that class of medication. Patient will be admitted to a telemetry bed Departure Departure: Impression: Primary Impression: Precordial chest pain Additional Impression: Elevated blood pressure reading Disposition: ADMITTED INPATIENT Admitting Physician: Traci Joyner Condition: STABLE Referrals: KATH MELTON MD (PCP) Justification of Admission: Justification of Admission: Justification of Admission Dx: Yes Angina: [facility] LATRICIA PALACIOS DO Jun 18, 2020 15:55
[2020-06-18 15:57] VITALS: BP 160/92
[2020-06-18] MEDS ORDERED: ASPIRIN 325 MG TABLET PO ONE (16:00)
[2020-06-18 16:17] LABS: BASO # 0.1 x10^3/uL (0.0-0.2); BASO % 1 % (0-3); EOS # 0.2 x10^3/uL (0.0-0.7); EOS % 3 % (0-3); HEMATOCRIT 42.2 % (36.0-47.0); HEMOGLOBIN 14.4 g/dL (12.0-15.5); LYMPH # 2.7 x10^3/uL (1.0-4.8); LYMPH % 30 % (24-48); MEAN CORPUSCULAR HEMOGLOBIN 30 pg (25-35); MEAN CORPUSCULAR HGB CONC 34 g/dL (31-37); MEAN CORPUSCULAR VOLUME 87 fL (79-100); MONO # 0.6 x10^3/uL (0.0-1.1); MONO % 7 % (0-9); NEUT # 5.4 x10^3uL (1.8-7.7); NEUT % 60 % (31-73); PLATELET COUNT 261 x10^3/uL (140-400); RED BLOOD COUNT 4.84 x10^6/uL (3.50-5.40); RED CELL DISTRIBUTION WIDTH 13.1 % (11.5-14.5)
[2020-06-18 16:22] LABS: CALCIUM 9.2 mg/dL (8.5-10.1); CREATININE 1.2 mg/dL (0.6-1.0); GFR 46.8; POTASSIUM 3.9 mmol/L (3.5-5.1)
[2020-06-18 16:27] LABS: ALBUMIN 3.5 g/dL (3.4-5.0); ALBUMIN/GLOBULIN RATIO 0.9 (1.0-1.7); TOTAL BILIRUBIN 0.4 mg/dL (0.2-1.0); TOTAL PROTEIN 7.6 g/dL (6.4-8.2)
--- NOTE | 2020-06-18 16:47 | RAD ---
Chest AP portable at 1556: Reason for examination: Chest pain. Comparison is made to previous study dated 03/17/2017. The heart size is normal. Mediastinum is unremarkable. Lung pressley are clear. No acute bony abnormalities are seen. Impression: No acute cardiopulmonary disease. Electronically signed by: Charo Cheng MD (06/18/2020 4:44 PM) CHRISTELLE
[2020-06-18] MEDS ORDERED: NITROGLYCERIN SUBLINGUAL 0.4 MG BOTTLE OF 25. SL PRN (17:15)
[2020-06-18] MEDS ORDERED: ONDANSETRON PF 4 MG/2 ML VIAL. IVP PRN (17:15)
--- NOTE | 2020-06-18 17:32 | EKG ---
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
== END 2020-06-18 17:50 | disposition left against medical advice (07) ==
LOC: ER 15:41
DX: R07.2 Precordial pain (principal); R03.0 Elevated blood-pressure reading, without diagnosis of hypertension; Z88.5 Allergy status to narcotic agent; Z88.8 Allergy status to other drugs, medicaments and biological substances
CPT/HCPCS: 36415; 71045; 80053; 84484; 85025; 93005; 96360; 99285; J7030

== ENCOUNTER 2021-04-17 10:36 | Emergency (ER) | payer OTHER ==
[~2021-04-17] VITALS: Ht 172.7 cm; Wt 107.1 kg
[2021-04-17] MEDS ORDERED: DEXAMETHASONE 4 MG TABLET PO ONE (11:00)
[2021-04-17] MEDS ORDERED: PRED20TA PO (11:02)
--- NOTE | 2021-04-17 11:02 | PHYS DOC ---
Past History Past Medical History: Cancer, Other Additional Past Medical Histor: lupus Past Surgical History: Appendectomy, Cholecystectomy Smoking: Non-smoker Alcohol Use: None Drug Use: None General Adult EDM: Chief Complaint: ALLERGIC REACTION HPI: HPI: 55-year-old female presents via EMS with report of possible allergic reaction after undergoing first COVID-19 shot prior to arrival. Patient was at local pharmacy receiving shot when symptoms suddenly occurred. Patient reports some throat tightening. Patient was given a total of 100 mg of Benadryl at the pharmacy prior to arrival. Denies history of asthma. Denies fever chills. Denies cough or shortness of breath. Review of Systems: Review of Systems: Constitutional: Denies fever or chills Eyes: Denies redness or eye pain HENT: Denies nasal congestion or sore throat; reports throat closing off sensation Respiratory: Denies cough; reports shortness of breath Cardiovascular: Denies chest pain or palpitations GI: Denies abdominal pain, nausea, or vomiting : Denies dysuria or hematuria Musculoskeletal: Denies back pain or joint pain Integument: Denies rash or skin lesions Neurologic: Denies headache, focal weakness or sensory changes Complete systems were reviewed and found to be within normal limits, except as documented in this note. Allergies: Allergies: Allergies Coded Allergies Type Severity Reaction Last Updated Verified codeine Allergy Severe Swelling 05/12/14 Yes morphine Allergy Intermediate Nausea and Vomiting 05/12/14 Yes prochlorperazine Allergy Intermediate 05/12/14 Yes Physical Exam: PE: Constitutional: Well developed, well nourished, no acute distress, anxious, non- toxic appearance HENT: Normocephalic, atraumatic Eyes: Conjunctiva normal, no discharge, tongue normal, handling secretions without difficulty Neck: Normal range of motion, no tenderness, supple Lungs & Thorax: No respiratory distress, equal chest rise and fall, no stridor Abdomen: Soft, no tenderness Skin: Warm, dry, no erythema, no rash Extremities: No tenderness, ROM intact, no edema Neurologic: Alert and oriented X 3, normal motor function, normal sensory function, no focal deficits noted Psychologic: Affect anxious, judgment normal Current Patient Data: Vital Signs: Vital Signs Date Time Temp Pulse Resp B/P (MAP) Pulse Ox O2 Delivery O2 Flow Rate FiO2 04/17/21 10:39 98.3 101 16 183/107 (132) 98 Room Air EKG: EKG: [] Radiology/Procedures: Radiology/Procedures: [] Heart Score: C/O Chest Pain: N/A Course & Med Decision Making: Course & Med Decision Making Patient presents with HPI and physical exam consistent for allergic reaction to COVID-19 vaccination which she received just prior to arrival. Patient reports tightness in his throat. Reports was initially treated with 100 mg of Benadryl prior to arrival. No airway compromise noted. Symptomatic treatment provided with oral steroid. Patient stable for discharge with outpatient follow-up with PCP. Discussed findings and plan with patient and spouse, who acknowledge understanding and agreement. Dragon Disclaimer: Nommunity Disclaimer: This electronic medical record was generated, in whole or in part, using a voice recognition dictation system. Departure Departure: Impression: Primary Impression: Allergic reaction to COVID-19 vaccine Disposition: HOME / SELF CARE / HOMELESS Condition: IMPROVED Referrals: KATH METLON MD (PCP) Patient Instructions: Drug Allergy, [id number] Additional Instructions: Please follow with your doctor regarding decision to obtain any further dosing of COVID-19. Advise to NOT obtain 2nd dose of Pfizer vaccination given your reaction today. May also take over the counter Benadryl 25mg (1 tab) every 4-6 hours as needed for allergic reaction symptoms. Scripts Prednisone (PREDNISONE) 20 Mg Tablet 2 TAB PO DAILY for Allergic reaction, #8 TAB Start this medication tomorrow, Fri04/18/21 Prov: BRUCE GUERRA DO 04/17/21 BRUCE GUERRA DO Apr 17, 2021 11:02
[2021-04-17 11:11] VITALS: BP 165/85
[2021-04-19] MEDS ORDERED: DILANTIN (11:54)
[2021-04-19] MEDS ORDERED: PHEN100C PO (15:44)
== END 2021-04-17 11:20 | disposition home or self-care (01) ==
LOC: ER 10:36
DX: T78.49XA Other allergy, initial encounter (principal); R06.02 Shortness of breath; Z88.5 Allergy status to narcotic agent; Z88.8 Allergy status to other drugs, medicaments and biological substances; Y92.89 Other specified places as the place of occurrence of the external cause
CPT/HCPCS: 99283; J8540

== ENCOUNTER → 2021-04-19 | Outpatient (CLI) | payer OTHER ==
[2021-04-17 11:11] VITALS: BP 165/85
[~2021-04-19] MED LIST changes: +ASPI-630 PO; +DILANTIN; +IOHEXOL 350 MG/ML 100 ML VIAL. IV ONE; +IOHEXOL 350 MG/ML 100 ML VIAL. ONE; +PHEN100C PO
--- NOTE | 2021-04-19 10:12 | RAD ---
CTA CHEST History: Chest pain. Shortness of breath. Technique: CT of the chest was performed with intravenous contrast. PE protocol. Maximum intensity pr ojection coronal and sagittal reconstructions were performed. Exposure: One or more of the following individualized dose reduction techniques were utilized for thi s examination: 1. Automated exposure control 2. Adjustment of the mA and/or kV according to patient size 3. Use of iterative reconstruction technique. Comparison: None Findings: Chest: No pulmonary embolism. No aortic aneurysm or dissection. No pathologic lymphadenopathy. Minima l coronary artery calcification. No consolidation or pleural effusion. No pneumothorax. Bilateral lower lobe dependent atelectasis. Upper abdomen: Prior cholecystectomy. Mildly enlarged upper abdominal lymph nodes partially imaged. Bones: No pathologic osseous lesions. Impression: 1. No acute thoracic pathology. No pulmonary embolism. 2. Mildly enlarged upper abdominal lymph nodes, likely reactive. If persistent clinical concern, rec ommend follow-up. Electronically signed by: Lance Villa DO (04/19/2021 10:10 AM) [id number]
== END ==
LOC: PMG 09:22
PROVIDERS: ATTEND Nurse Practitioner Family
DX: I25.10 Atherosclerotic heart disease of native coronary artery without angina pectoris (principal); R06.02 Shortness of breath; R59.9 Enlarged lymph nodes, unspecified; Z86.718 Personal history of other venous thrombosis and embolism; Z90.49 Acquired absence of other specified parts of digestive tract
CPT/HCPCS: 71275; Q9967

== ENCOUNTER → 2021-05-09 | Outpatient (CLI) | payer OTHER ==
[2021-04-20 10:51] VITALS: BP 161/83
[~2021-05-09] MED LIST changes: -IOHEXOL 350 MG/ML 100 ML VIAL. IV ONE; -IOHEXOL 350 MG/ML 100 ML VIAL. ONE; +REGADENOSON 0.4 MG/5 ML DISP.SYRIN. IV ONE
--- NOTE | 2021-05-09 22:46 | RAD ---
MR#: [id number] Date of Study: 05/09/2021 Ordering Physician: MICHELLE PAEZ, Referring Physician: TONIO FOURNIER Tech: DAVID Jimenez ARRT (R) (N) APPROVED REPORT Test Type: Pharmacological Stress Nurse/Tech: GILLES Molina Test Indications: cp Cardiac History: See Electronic Medical Record Medications: See Electronic Medical Record Medical History: See Electronic Medical Record Resting ECG: SR Resting Heart Rate: 86 bpm Resting Blood Pressure: 177/84mmHg Pretest Chest Pain: None Nurse/Tech Notes SR, NO SIGNIFICANT ACUTE CHANGES WITH STRESS Consent: The procedure was explained to the patient in lay terms. Informed consent was witnessed. Thang eout was entered into [employer]. History and Stress Test performed by DAVID Jimenez ARRT (R) (N) Pharm. Details Pharmacologic stress testing was performed using 0.4mg per 5ml of regadenoson given intravenously ove r 7-10 seconds. Stress Symptoms No chest pain or symptoms. POST EXERCISE Reason for Termination: Infusion complete Target HR: No Max HR: 116 bpm 82% of Maximum Predicted HR: 140 bpm Exercise duration: 6 min:sec, Stage Max Blood Pressure: 185/88mmHg Blood Pressure response to exercise: Normal blood pressure response during stress. Chest Pain: No. Arrhythmia: No. ST Change: No. INTERPRETATION Stress EKG Conclusion: SR, NO SIGNIFICANT ACUTE CHANGES WITH STRESS Imaging Protocol IMAGE PROTOCOL: Rest Tc-99m/stress Tc-99m 1 day Rest: Stress: Viability: Radiopharm.Tc99m ByntrxunlGp45d Sestamibi Dose10.3mCi 31mCi Img Date 05/09/2021 05/09/2021 Inj-Img Nnph22cei. 60min. Rest Admin Site:IV - Right HandAdministrator: DAVID Jimenez ARRT (R)(N) Stress Admin Site: IV - Right HandAdministrator: DAVID Jimenez ARRT (R)(N) STRESS DATA End Diast. Vol.82.0mlAv. Heart Rate92.0bpm End Syst. Vol.16.0mlCO Index BSA0.0L/min Myocardial Dvno314.0gEject. Iwvqdzwg26.0% Stress Rates Pk. Fill Rate1.96EDV/secLVtime Pk. Fill 85.32msec Pk. Empty Rate4.15ESV/secLVtime Pk. Eorqf697.93msec 1/3 Pk. Fill1.37EDV/sec Stress Scores Regional WT0.00Summed WT4.00 Regional WM0.00Summed WM0.00 LV Perfusion There is a moderate sized mild to moderate intensity basal to distal anterior and anteroseptal fully reversible perfusion defect suggestive of impaired perfusion reserve in the LAD territory. No prior infarct is noted. Wall Motion Normal wall motion with ejection fraction of 70%. LV Perf. Quant 17 Seg. SSS8.00 17 Seg. SRS1.00 17 Seg. SDS7.00 Stress Defect Extent (% LAD)0.00Rest Defect Extent (% LAD)0.00Rev. Defect Extent (% LAD)0.00 Stress Defect Extent (% LCX) 63.80Rest Defect Extent (% LCX)0.00Rev. Defect Extent (% LCX)53.80 Stress Defect Extent (% RCA)0.00Rest Defect Extent (% RCA)0.00Rev. Defect Extent (% RCA)0.00 Stress Defect Extent (% LISSETTE)11.10Rest Defect Extent (% LISSETTE)0.00Rev. Defect Extent (% LISSETTE)9.30 Other Information Quality:Average Risk Assessment: Moderate Risk Conclusion 1. No evidence of EKG changes with stress testing. 2. Reversible anterior wall perfusion defect as noted above. 3. Moderate risk study. 4. EF > 60%. Signed by : Michelle aPez, Electronically Approved : 05/09/2021 22:45:45
== END ==
LOC: NM 08:10
PROVIDERS: ATTEND Internal Medicine Cardiovascular Disease
DX: R07.1 Chest pain on breathing (principal)
CPT/HCPCS: 78452; 93017; A9500; J2785

== ENCOUNTER 2021-05-21 12:57 | Emergency (ER) | payer OTHER ==
[~2021-05-21] VITALS: Ht 172.7 cm; Wt 105.9 kg
[~2021-05-21 12:57] MED LIST changes: -REGADENOSON 0.4 MG/5 ML DISP.SYRIN. IV ONE
[2021-05-21 13:54] LABS: BASO # 0.1 x10^3/uL (0.0-0.2); BASO % 1 % (0-3); EOS # 0.1 x10^3/uL (0.0-0.7); EOS % 2 % (0-3); HEMOGLOBIN 14.5 g/dL (12.0-15.5); LYMPH # 2.3 x10^3/uL (1.0-4.8); LYMPH % 30 % (24-48); MEAN CORPUSCULAR HEMOGLOBIN 29 pg (25-35); MEAN CORPUSCULAR HGB CONC 34 g/dL (31-37); MEAN CORPUSCULAR VOLUME 87 fL (79-100); MONO # 0.5 x10^3/uL (0.0-1.1); MONO % 6 % (0-9); NEUT # 4.7 x10^3uL (1.8-7.7); NEUT % 61 % (31-73); PLATELET COUNT 260 x10^3/uL (140-400); RED BLOOD COUNT 4.95 x10^6/uL (3.50-5.40); RED CELL DISTRIBUTION WIDTH 13.1 % (11.5-14.5); WHITE BLOOD COUNT 7.7 x10^3/uL (4.0-11.0)
[2021-05-21 13:57] LABS: CALCIUM 9.3 mg/dL (8.5-10.1); CREATININE 0.7 mg/dL (0.6-1.0); GFR 86.9; POTASSIUM 5.1 mmol/L (3.5-5.1)
[2021-05-21] MEDS ORDERED: ASPIRIN CHEWABLE 81 MG TABLET. PO ONE (14:00)
--- NOTE | 2021-05-21 14:01 | PHYS DOC ---
Past History Past Medical History: Cancer, Other Additional Past Medical Histor: lupus Past Surgical History: Appendectomy, Cholecystectomy Smoking: Non-smoker Alcohol Use: None Drug Use: None General Adult EDM: Chief Complaint: CHEST PAIN HPI: HPI: 55-year-old female presents with chest pain. She describes it as a heavy pressure in the middle of her chest above her right breast and underneath her left arm. She has had intermittent chest pains over the last several weeks. She has seen a tax intern and had a stress test. There plan to do a cardiac cath and possible stent in a week and a half. Patient comes in today because she started pain this morning while she was at work. It has continued to intensify. She now rates her 7 out of 10. She denies shortness of breath or diaphoresis. She has no other complaints this time. Review of Systems: Review of Systems: Constitutional: Denies fever or chills Eyes: Denies change in visual acuity HENT: Denies nasal congestion or sore throat Respiratory: Denies cough or shortness of breath Cardiovascular: Chest pain GI: Denies abdominal pain, nausea, vomiting, bloody stools or diarrhea : Denies dysuria Musculoskeletal: Denies back pain or joint pain Integument: Denies rash Neurologic: Denies headache, focal weakness or sensory changes Endocrine: Denies polyuria or polydipsia Lymphatic: Denies swollen glands Psychiatric: Denies depression or anxiety Allergies: Allergies: Allergies Coded Allergies Type Severity Reaction Last Updated Verified codeine Allergy Severe Swelling 05/12/14 Yes morphine Allergy Intermediate Nausea and Vomiting 05/12/14 Yes prochlorperazine Allergy Intermediate 05/12/14 Yes Physical Exam: PE: Constitutional: Well developed, well nourished, morbidly obese, no acute distress, non-toxic appearance. [] HENT: Normocephalic, atraumatic, bilateral external ears normal, oropharynx moist, no oral exudates, nose normal. [] Eyes: PERRLA, EOMI, conjunctiva normal, no discharge. [] Neck: Normal range of motion, no tenderness, supple, no stridor. [] Cardiovascular: Heart rate 103, regular rhythm, no murmur [] Lungs & Thorax: Bilateral breath sounds clear to auscultation [] Abdomen: Bowel sounds normal, soft, no tenderness, no masses, no pulsatile masses. [] Skin: Warm, dry, no erythema, no rash. [] Back: No tenderness, no CVA tenderness. [] Extremities: No tenderness, no cyanosis, no clubbing, ROM intact, no edema. [] Neurologic: Alert and oriented X 3, normal motor function, normal sensory function, no focal deficits noted. [] Psychologic: Affect normal, judgement normal, mood anxious. [] EKG: EKG: Sinus tachycardia, rate 103, normal axis, no ST elevation or depressions. [] Radiology/Procedures: Radiology/Procedures: [] Heart Score: C/O Chest Pain: Yes HEART Score for Chest Pain: HEART Score for Chest Pain Response (Comments) Value History Moderately Suspicious 1 ECG Nonspecific Repolarizatio 1 Age >45 - < 65 1 Risk Factors 1 or 2 Risk Factors 1 Troponin < Normal Limit 0 Total 4 Risk Factors: Risk Factors: DM, Current or recent (<one month) smoker, HTN, HLP, family history of CAD, obesity. Risk Scores: Score 0 - 3: 2.5% MACE over next 6 weeks - Discharge Home Score 4 - 6: 20.3% MACE over next 6 weeks - Admit for Clinical Observation Score 7 - 10: 72.7% MACE over next 6 weeks - Early Invasive Strategies Course & Med Decision Making: Course & Med Decision Making Pertinent Labs and Imaging studies reviewed. (See chart for details) The patient's EKG is unremarkable. Her chest x-ray is negative for acute findings. Her labs are unremarkable. Her troponin is negative. The patient was still in some discomfort so she was given aspirin later nitro. This decreased her pain by at least 75%. She did develop a headache. I spoke with the patient and she would prefer to go home. She just wanted to make sure that her troponin was not elevated. She will keep her plan of cardiac cath as scheduled. Patient's urinalysis was significant for yeast so I will give her a dose of Diflucan here in the ED. She is stable for discharge at this time. [] Dragon Disclaimer: Dragadama Disclaimer: This electronic medical record was generated, in whole or in part, using a voice recognition dictation system. Departure Departure: Impression: Primary Impression: Chest pain Additional Impression: Yeast cystitis Disposition: HOME / SELF CARE / HOMELESS Condition: STABLE Referrals: KELVIN FAIR (PCP) Patient Instructions: Chest Pain (Nonspecific), Gajw-nr-Meiz BRYAN ISRAEL DO May 21, 2021 14:01
[2021-05-21 14:03] LABS: ALBUMIN 3.9 g/dL (3.4-5.0); ALBUMIN/GLOBULIN RATIO 1.1 (1.0-1.7); TOTAL BILIRUBIN 0.5 mg/dL (0.2-1.0); TOTAL PROTEIN 7.4 g/dL (6.4-8.2)
--- NOTE | 2021-05-21 14:10 | EKG ---
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
--- NOTE | 2021-05-21 14:15 | RAD ---
INDICATION: Reason: CP / Spl. Instructions: / History: COMPARISON: June 2020 FINDINGS: Single view of chest obtained. No definite focal airspace consolidation. Cardiac silhouette unremarkable. IMPRESSION: * No focal airspace consolidation or edema. Electronically signed by: Wellington Richmond MD (05/21/2021 2:13 PM) [id number]
[2021-05-21 14:53] LABS: BILIRUBIN,URINE NEG (NEG); CLARITY,URINE CLEAR; COLOR,URINE YELLOW; GLUCOSE,URINE NEG (NEG); NITRITE,URINE NEG (NEG); UROBILINOGEN,URINE 0.2 mg/dL (0.2 mg/dL)
[2021-05-21 14:57] LABS: BACTERIA,URINE FEW /HPF (0-FEW); SQUAMOUS EPITHELIAL CELL,UR MOD /LPF; YEAST,URINE PRESENT /HPF
[2021-05-21] MEDS ORDERED: NITROGLYCERIN SUBLINGUAL 0.4 MG BOTTLE OF 25. SL PRN (15:45)
[2021-05-21 16:42] VITALS: BP 137/81
[2021-05-21] MEDS ORDERED: FLUCONAZOLE 100 MG TABLET. PO ONE (17:00)
== END 2021-05-21 17:07 | disposition home or self-care (01) ==
LOC: ER 12:57
DX: R07.89 Other chest pain (principal); B37.41 Candidal cystitis and urethritis; Z88.5 Allergy status to narcotic agent; Z88.8 Allergy status to other drugs, medicaments and biological substances
CPT/HCPCS: 36415; 71045; 80053; 81001; 84484; 85025; 93005; 99285